=== PATIENT | female | born 1970 | race Caucasian/White ===

== ENCOUNTER 2016-08-06 22:49 | Emergency (ER) | payer MEDICAID ==
[~2016-08-06] VITALS: Ht 175.3 cm; Wt 80.7 kg
[2016-08-06] MEDS ORDERED: KETOROLAC 30 MG/1 ML IM ONE (23:30)
[2016-08-06] MEDS ORDERED: KETOROLAC 30 MG/1 ML ONE (23:33)
[2016-08-07 00:39] VITALS: BP 121/69
== END 2016-08-07 00:42 | disposition home or self-care (01) ==
LOC: ED 23:31
DX: K62.5 Hemorrhage of anus and rectum (principal); K64.4 Residual hemorrhoidal skin tags
CPT/HCPCS: 96372; 99283; J1885; 80053; 83690; 85025